=== PATIENT | male | born 1965 | race Caucasian/White ===

== ENCOUNTER 2017-08-02 17:39 | Emergency (ER) | payer MEDICARE, OTHER ==
[2017-08-02 18:04] VITALS: BP 95/61; PULSE 60; RESP 18; TEMP 98.8; O2SAT 99
[2017-08-02 18:46] LABS: BASO % 0.6 % (0.0-2.0); EOS % 0.1 % (0.0-4.0); HEMOGLOBIN 12.4 g/dL (12.0-18.0); LYMPH # 2.5 K/uL (1.0-4.3); LYMPH % 36.7 % (20.0-40.0); MEAN CORPUSCULAR HEMOGLOBIN 28.5 pg (27.0-31.0); MEAN CORPUSCULAR HGB CONC 33.5 g/dL (33.0-37.0); MEAN PLATELET VOLUME 8.2 fL (7.2-11.7); MONO # 0.6 K/uL (0.0-0.8); MONO % 9.1 % (0.0-10.0); NEUT # 3.6 K/uL (1.8-7.0); NEUT % 53.5 % (50.0-75.0); NRBC % 0.2 % (0.0-2.0); RBC 4.36 Mil/uL (4.40-5.90); RED CELL DISTRIBUTION WIDTH 13.5 % (11.5-14.5); WHITE BLOOD COUNT 6.8 K/uL (4.8-10.8)
[2017-08-02 18:59] LABS: ALB/GLOB RATIO 1.3 (1.0-2.1); ALBUMIN 4.3 g/dL (3.5-5.0); ALT/SGPT 37 U/L (21-72); AST/SGOT 33 U/L (17-59); BLOOD UREA NITROGEN 17 mg/dL (9-20); CALCIUM 9.4 mg/dl (8.6-10.4); GFR AFRICAN-AMERICAN > 60; GFR NON-AFRICAN AMERICAN > 60
[2017-08-02] MEDS ORDERED: Tetanus/Diphtheria Toxoids 0.5 ml Syringe IM ONE ×2 (19:29→19:40)
--- NOTE | 2017-08-02 19:33 | C.PDOC ---
History Of Present Illness 52 y/o male presents to the ER complaining of left foot pain which began after he stepped on a nail yesterday. Patient states that he noticed there was swelling on the dorsum aspect of his foot. Patient denies having weakness and numbness. Time Seen by Provider: 08/02/17 18:18 Chief Complaint (Nursing): Lower Extremity Problem/Injury History Per: Patient History/Exam Limitations: no limitations Onset/Duration Of Symptoms: Days Current Symptoms Are (Timing): Still Present Severity: Moderate Past Medical History Reviewed: Historical Data, Nursing Documentation, Vital Signs Vital Signs: Last Vital Signs Temp 98.8 F 08/02/17 18:03 Pulse 60 08/02/17 18:03 Resp 18 08/02/17 18:03 BP 95/61 L 08/02/17 18:03 Pulse Ox 99 08/02/17 20:24 - Medical History PMH: HTN, Hypercholesterolemia, Seizures Surgical History: Appendectomy Family History: States: No Known Family Hx - Social History Hx Tobacco Use: No Hx Alcohol Use: No Hx Substance Use: No - Immunization History Hx Tetanus Toxoid Vaccination: No Hx Influenza Vaccination: No Hx Pneumococcal Vaccination: No Review Of Systems Except As Marked, All Systems Reviewed And Found Negative. Musculoskeletal: Positive for: Foot Pain (left foot pain) Neurological: Negative for: Weakness, Numbness Physical Exam - Physical Exam Appears: Non-toxic, No Acute Distress Skin: Normal Color, Warm, Dry Head: Atraumatic, Normacephalic Eye(s): bilateral: Normal Inspection Nose: Normal Oral Mucosa: Moist Neck: Supple Chest: Symmetrical Cardiovascular: Rhythm Regular Respiratory: Normal Breath Sounds, No Rales, No Rhonchi, No Wheezing Extremity: Swelling (swelling to dorsum aspect of right foot), Other (erythema to dorsum aspect of right foot) Neurological/Psych: Oriented x3, Normal Speech ED Course And Treatment - Laboratory Results Result Diagrams: 08/02/17 18:43 08/02/17 18:43 O2 Sat by Pulse Oximetry: 99 (RA) Pulse Ox Interpretation: Normal Progress Note: Labs and X-Ray - Left Foot ordered and reviewed. Patient treated with Cipro PO. Patient has been discharged and instructed to follow up with PMD in 2 days. Disposition - Disposition Referrals: Anson Becerra MD [Staff Provider] - Disposition: HOME/ ROUTINE Disposition Time: 19:30 Condition: STABLE Additional Instructions: Follow up with your PMD within 1-2 days. Return to ED if feel worse. Prescriptions: levoFLOXacin [Levaquin] 750 mg PO STAT #10 tab Instructions: Wound Care Forms: [facility] (Slovak) Print Language: UPPER SORBIAN - Clinical Impression Clinical Impression: Puncture wound of plantar aspect of left foot with infection
--- NOTE | 2017-08-03 08:37 | RAD ---
PROCEDURE: Left Foot Radiographs. HISTORY: plantar puncture wound COMPARISON: None. FINDINGS: BONES: No evidence of acute displaced fracture nor dislocation. The osseous structures appear intact so far as be seen. No obvious destructive changes. 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 SOFT TISSUES: Questionable mild soft tissue swelling. No subcutaneous emphysema or radiopaque foreign bodies. Minor vascular calcifications are present. OTHER FINDINGS: None. IMPRESSION: No displaced fracture nor dislocation. No evidence cortical destructive changes. No radiopaque foreign bodies. There does appear to be mild diffuse soft tissue swelling without evidence of subcutaneous emphysema.
== END 2017-08-02 19:45 | disposition home or self-care (01) ==
LOC: C.ER 17:39
DX: S91.332A Puncture wound without foreign body, left foot, initial encounter (principal); L08.9 Local infection of the skin and subcutaneous tissue, unspecified; W45.0XXA Nail entering through skin, initial encounter